=== PATIENT | male | born 1960 | race Two or more races ===

== ENCOUNTER → 2017-02-25 | Outpatient (REF) | payer OTHER ==
[~2017-02-25] MED LIST: ALEV220C2 PO; LISI20TA PO; OMEP20CA3 PO; SIMV40TA2 PO
== END ==
LOC: M SMT 16:53
PROVIDERS: ATTEND Nurse Practitioner Family
DX: R35.1 Nocturia (principal)

== ENCOUNTER 2018-07-03 07:50 | Day surgery (SDC) | payer OTHER ==
[~2018-07-03] VITALS: Ht 175.3 cm; Wt 94.3 kg
[~2018-07-03 07:50] MED LIST changes: +MONT10TA2 PO; +NS 1,000 ML IV ONE; +VENTAER INH; +VITA200038 PO; +allergy shots IM
[2018-07-03] MEDS ORDERED: PROPOFOL 500 MG/50 ML VIAL As Ordered ONE (08:08)
[2018-07-03] MEDS ORDERED: LIDOCAINE 2% INJ 100 MG/5 ML SDV (FOR ANES.) As Ordered ONE (08:32)
--- NOTE | 2018-07-03 10:23 | ROOR ---
Patient Name: Sen Luz Procedure Date: 07/03/2018 10:07 AM Date of : 1960 Age: 58 Room: [facility] Gender: Male Note Status: Finalized Procedure: Upper Endoscopy + Biopsies Indications: Heartburn, Exclusion of Landry's esophagus Providers: Jay Hoffman MD Referring MD: Sri Rodriguez MD Requesting Provider: Medicines: Monitored Anesthesia Care Complications: No immediate complications. Procedure: Pre-Anesthesia Assessment: - The heart rate, respiratory rate, oxygen saturations, blood pressure, adequacy of pulmonary ventilation, and response to care were monitored throughout the procedure. The Endoscope was introduced through the mouth, and advanced to the second part of duodenum. The upper GI endoscopy was accomplished without difficulty. The patient tolerated the procedure well. Findings: The Z-line was irregular and was found 40 cm from the incisors. Multiple biopsies were obtained with cold forceps for evaluation to rule out Landry's Esophagus randomly at the gastroesophageal junction. A small hiatal hernia was present. No other significant abnormalities were identified in a careful examination of the stomach. The exam of the duodenum was otherwise normal. Impression: - Z-line irregular, 40 cm from the incisors. - Small hiatal hernia. - Multiple biopsies were obtained at the gastroesophageal junction. - The examination was otherwise normal. Recommendation: - Patient has a contact number available for emergencies. The signs and symptoms of potential delayed complications were discussed with the patient. Return to normal activities tomorrow. Written discharge instructions were provided to the patient. - High fiber diet. - Discharge patient to home. - Follow an antireflux regimen. - Continue present medications. - Await pathology results. - Telephone GI clinic for pathology results in 1 week. - Return to referring physician. - The findings and recommendations were discussed with the patient's family. Jay Hoffman MD Jay Hoffman MD 07/03/2018 10:22:31 AM Electronically signed by Jay Hoffman MD Number of Addenda: 0 Note Initiated On: 07/03/2018 10:07 AM Estimated Blood Loss: Estimated blood loss: none.
--- NOTE | 2018-07-03 10:42 | ROOR ---
Patient Name: Sen Luz Procedure Date: 07/03/2018 10:07 AM Date of : 1960 Age: 58 Room: [facility] Gender: Male Note Status: Finalized Procedure: Total Colonoscopy to Cecum + Hot Snare Polypectomy + Hemoclip Indications: High risk colon cancer surveillance: Personal history of colonic polyps, Last colonoscopy: 2014 Providers: Jay Hoffman MD Referring MD: Sri Rodriguez MD Requesting Provider: Medicines: Monitored Anesthesia Care Complications: No immediate complications. Procedure: Pre-Anesthesia Assessment: - The heart rate, respiratory rate, oxygen saturations, blood pressure, adequacy of pulmonary ventilation, and response to care were monitored throughout the procedure. The Colonoscope was introduced through the anus and advanced to the cecum, identified by appendiceal orifice and ileocecal valve. The colonoscopy was performed without difficulty. The patient tolerated the procedure well. The quality of the bowel preparation was excellent. Findings: The perianal and digital rectal examinations were normal. Non-bleeding internal hemorrhoids were found during retroflexion. The hemorrhoids were small and Grade I (internal hemorrhoids that do not prolapse). Multiple small and large-mouthed diverticula were found in the recto-sigmoid colon, sigmoid colon and descending colon. A medium polyp was found at 10 cm proximal to the anus. The polyp was pedunculated. The polyp was removed with a hot snare. Resection and retrieval were complete. To prevent bleeding after the polypectomy, one hemostatic clip was successfully placed (MR conditional). There was no bleeding at the end of the procedure. A small polyp was found at 20 cm proximal to the anus. The polyp was sessile. The polyp was removed with a jumbo cold forceps. Resection and retrieval were complete. The exam was otherwise without abnormality on direct and retroflexion views. Impression: - Non-bleeding internal hemorrhoids. - Diverticulosis in the recto-sigmoid colon, in the sigmoid colon and in the descending colon. - One medium polyp at 10 cm proximal to the anus, removed with a hot snare. Resected and retrieved. Clip (MR conditional) was placed. - One small polyp at 20 cm proximal to the anus, removed with a jumbo cold forceps. Resected and retrieved. - The examination was otherwise normal on direct and retroflexion views. - The exam was otherwise normal to the cecum. Recommendation: - Patient has a contact number available for emergencies. The signs and symptoms of potential delayed complications were discussed with the patient. Return to normal activities tomorrow. Written discharge instructions were provided to the patient. - High fiber diet. - Discharge patient to home. - Continue present medications. - Await pathology results. - Repeat colonoscopy for surveillance based on pathology results. - Telephone GI clinic for pathology results in 1 week. - Return to referring physician. - The findings and recommendations were discussed with the patient's family. Jay Hoffman MD Jay Hoffman MD 07/03/2018 10:42:26 AM Electronically signed by Jay Hoffman MD Number of Addenda: 0 Note Initiated On: 07/03/2018 10:07 AM Estimated Blood Loss: Estimated blood loss: none.
[2018-07-03 10:50] VITALS: BP 117/78
== END 2018-07-03 11:08 | disposition home or self-care (01) ==
LOC: M OPP 07:50
PROVIDERS: ATTEND Internal Medicine Gastroenterology
DX: K64.0 First degree hemorrhoids (principal); K57.30 Diverticulosis of large intestine without perforation or abscess without bleeding; D12.6 Benign neoplasm of colon, unspecified; K22.8 Other specified diseases of esophagus; K44.9 Diaphragmatic hernia without obstruction or gangrene; R12 Heartburn; Z86.010 Personal history of colon polyps

== ENCOUNTER 2019-03-27 14:48 | Emergency (ER) | payer OTHER ==
[~2019-03-27] VITALS: Ht 175.3 cm; Wt 97.9 kg
[~2019-03-27 14:48] MED LIST changes: -LISI20TA PO; +LISI20TA19 PO; -NS 1,000 ML IV ONE; +OMEP1CAP73 PO; -OMEP20CA3 PO; -SIMV40TA2 PO; +SIMV40TA20 PO
[2019-03-27] MEDS ORDERED: ADACEL/BOOSTRIX VACCINE (DIPHTH/PERTUSS/ACELL/TETANUS)0.5ML SYR (90715) IM ONE (15:30)
[2019-03-27] MEDS ORDERED: LIDOCAINE 2% MDV 20 ML VIAL SC ONE (16:15)
[2019-03-27 17:20] VITALS: BP 126/76
--- NOTE | 2019-03-28 07:19 | REP ---
LEFT FIFTH FINGER SERIES: 03/27/2019. Clinical history: Laceration left fifth finger on a porcelain sink. Findings: Four views provided. No comparisons. There is soft tissue injury and flap of skin at the ulnar aspect of the DIP joint of the 5th digit. Some minor soft tissue swelling at the PIP joint. There is no fracture, avulsion or radiopaque foreign body. The pad of the finger also shows continuation of that same laceration. There are no other significant findings. Impression: 1. Laceration and soft tissue pad of the distal phalanx fifth digit without subjacent fracture, foreign body, avulsion or other acute bony finding. 2. Some soft tissue swelling about the PIP joint. Electronically Signed by Felipe Kumar MD 03/28/2019 08:07 P
== END 2019-03-27 17:20 | disposition home or self-care (01) ==
LOC: M ED 14:48
DX: S61.217A Laceration without foreign body of left little finger without damage to nail, initial encounter (principal); W26.8XXA Contact with other sharp object(s), not elsewhere classified, initial encounter; Y92.019 Unspecified place in single-family (private) house as the place of occurrence of the external cause; I10 Essential (primary) hypertension; J30.2 Other seasonal allergic rhinitis; Z79.84 Long term (current) use of oral hypoglycemic drugs; Z79.899 Other long term (current) drug therapy

== ENCOUNTER → 2019-04-06 | Outpatient (CLI) | payer OTHER ==
[2019-04-06 09:15] LABS: BASO % 1.2 % (0.0-1.0); HEMATOCRIT 42.8 % (42.0-52.0); HEMOGLOBIN 14.3 g/dl (13.5-17.5); LYMPH % 29.3 % (24.0-44.0); MEAN CORPUSCULAR HEMOGLOBIN 32.1 pg (27.0-33.0); MEAN CORPUSCULAR HGB CONC 33.4 g/dl (32.0-36.5); MEAN CORPUSCULAR VOLUME 96.2 fl (80.0-96.0); MONO # 0.4 10^3/uL (0.0-0.8); MONO % 11.3 % (0.0-5.0); NEUTROPHILS # 1.6 10^3/uL (1.5-8.5); NEUTROPHILS % 48.9 % (36.0-66.0); PLATELET COUNT, AUTOMATED 220 10^3/uL (150-450); RED BLOOD COUNT 4.45 10^6/uL (4.30-6.10); WHITE BLOOD COUNT 3.4 10^3/uL (4.0-10.0)
[2019-04-06 09:16] LABS: EOS # 0.3 10^3/uL (0.0-0.5)
[2019-04-06 09:46] LABS: ALBUMIN 4.3 GM/DL (3.2-5.2); ALT/SGPT 37 U/L (12-78); BILIRUBIN,TOTAL 0.5 MG/DL (0.2-1.0); BLOOD UREA NITROGEN 18 MG/DL (7-18); CALCIUM LEVEL 9.1 MG/DL (8.5-10.1); CARBON DIOXIDE LEVEL 27 MEQ/L (21-32); CHLORIDE LEVEL 105 MEQ/L (98-107); CHOLESTEROL LEVEL 209 MG/DL (<200); CHOLESTEROL RISK RATIO 3.215 (<5); CREATININE FOR GFR 1.01 MG/DL (0.70-1.30); GLOMERULAR FILTRATION RATE > 60.0 (>56); GLUCOSE, FASTING 82 MG/DL (70-100); HDL CHOLESTEROL 65 MG/DL (>40); LDL CHOLESTEROL 101 MG/DL (<100); NON-HDL-C 144 MG/DL; POTASSIUM SERUM 4.6 MEQ/L (3.5-5.1); SODIUM LEVEL 140 MEQ/L (136-145); TOTAL PROTEIN 7.8 GM/DL (6.4-8.2); TRIGLYCERIDES LEVEL 215 MG/DL (<150)
== END ==
LOC: M LAB 08:08
PROVIDERS: ATTEND Family Medicine
DX: I10 Essential (primary) hypertension (principal)
CPT/HCPCS: 36415; 80053; 80061; 85025; G0103

== ENCOUNTER 2020-02-05 08:45 | Emergency (ER) | payer OTHER ==
[~2020-02-05] VITALS: Ht 175.3 cm; Wt 98.6 kg
[~2020-02-05 08:45] MED LIST changes: -LISI20TA19 PO; +LISI20TA35 PO; -MONT10TA2 PO; +MONT5TAB2 PO
[2020-02-05 08:46] VITALS: BP 140/88
[2020-02-05] MEDS ORDERED: PROPARACAINE 0.5% OPHTH SOL 15ML OS ONE (09:00)
[2020-02-05] MEDS ORDERED: FLUORESCEIN OPHTH 1 MG STRIP OS ONE (09:00)
[2020-02-05] MEDS ORDERED: ERYT5OIN25 OS (09:30)
== END 2020-02-05 09:44 | disposition home or self-care (01) ==
LOC: M ED 08:45
DX: S05.02XA Injury of conjunctiva and corneal abrasion without foreign body, left eye, initial encounter (principal); W60.XXXA Contact with nonvenomous plant thorns and spines and sharp leaves, initial encounter; Y92.9 Unspecified place or not applicable; Y93.9 Activity, unspecified; Y99.9 Unspecified external cause status; Z79.899 Other long term (current) drug therapy

== ENCOUNTER → 2020-04-09 | Outpatient (CLI) | payer SELFPAY ==
[~2020-04-09] MED LIST changes: +ERYT5OIN25 OS; +MONT10TA10 PO; -MONT5TAB2 PO
== END ==
LOC: M LABSMTC 10:22
PROVIDERS: ATTEND Pediatrics
DX: Z20.822 Contact with and (suspected) exposure to COVID-19 (principal)

== ENCOUNTER → 2021-03-27 | Outpatient (CLI) | payer OTHER ==
[~2021-03-27] MED LIST changes: -MONT10TA10 PO; +MONT10TA97 PO
== END ==
LOC: M LAB 11:29
PROVIDERS: ATTEND Urology
DX: N40.1 Benign prostatic hyperplasia with lower urinary tract symptoms (principal)

== ENCOUNTER → 2021-05-11 | Outpatient (CLI) | payer OTHER | LOC: M RAD 10:06 | PROVIDERS: ATTEND Family Medicine | DX: R10.11 Right upper quadrant pain (principal); R94.5 Abnormal results of liver function studies ==

== ENCOUNTER → 2021-11-13 | Outpatient (CLI) | payer OTHER | LOC: M LAB 08:50 | PROVIDERS: ATTEND Family Medicine | DX: J30.1 Allergic rhinitis due to pollen (principal); J32.0 Chronic maxillary sinusitis; R05.3 Chronic cough ==

== ENCOUNTER → 2022-03-14 | Outpatient (CLI) | payer OTHER ==
[2022-03-14 07:00] LABS: BASO % 1.2 % (0.0-1.0); EOS # 0.2 10^3/uL (0.0-0.5); EOS % 6.3 % (0.0-3.0); HEMOGLOBIN 13.6 g/dl (13.5-17.5); LYMPH % 28.5 % (24.0-44.0); MEAN CORPUSCULAR HEMOGLOBIN 32.4 pg (27.0-33.0); MEAN CORPUSCULAR VOLUME 95.2 fl (80.0-96.0); MONO # 0.4 10^3/uL (0.0-0.8); MONO % 12.6 % (2.0-8.0); NEUTROPHILS # 1.7 10^3/uL (1.5-8.5); NEUTROPHILS % 50.5 % (36.0-66.0); PLATELET COUNT, AUTOMATED 217 10^3/uL (150-450); WHITE BLOOD COUNT 3.3 10^3/uL (4.0-10.0)
[2022-03-14 07:30] LABS: ALKALINE PHOSPHATASE 67 U/L (46-116); ALT/SGPT 43 U/L (7.0-40); AST/SGOT 50 U/L (<34); BILIRUBIN,TOTAL 0.4 MG/DL (0.3-1.2); BLOOD UREA NITROGEN 19 MG/DL (9-23); CALCIUM LEVEL 9.5 MG/DL (8.3-10.6); CARBON DIOXIDE LEVEL 24 MMOL/L (20-31); CHLORIDE LEVEL 102 MMOL/L (98-107); CHOLESTEROL LEVEL 185 MG/DL (<200); CHOLESTEROL RISK RATIO 3.09 (<5); CREATININE FOR GFR 1.12 MG/DL (0.70-1.30); GLOMERULAR FILTRATION RATE > 60.0 (>49); GLUCOSE, FASTING 90 MG/DL (74-106); HDL CHOLESTEROL 59.8 MG/DL (>40); LDL CHOLESTEROL 90.6 MG/DL (<100); NON-HDL-C 125 MG/DL; POTASSIUM SERUM 4.4 MMOL/L (3.5-5.1); SODIUM LEVEL 137 MMOL/L (136-145); TOTAL PROTEIN 7.5 G/DL (5.7-8.2); TRIGLYCERIDES LEVEL 173 MG/DL (<150)
[2022-03-14 14:42] LABS: TOTAL 25(OH) VITAMIN D 37.8 NG/ML (20.0-100.0)
== END ==
LOC: M LAB 06:19
PROVIDERS: ATTEND Family Medicine
DX: I10 Essential (primary) hypertension (principal); N40.1 Benign prostatic hyperplasia with lower urinary tract symptoms; E55.9 Vitamin D deficiency, unspecified
CPT/HCPCS: 36415; 80053; 80061; 82306; 85025; G0103

== ENCOUNTER → 2022-10-18 | Outpatient (CLI) | payer OTHER ==
[2022-10-18 09:15] LABS: ALBUMIN 4.2 G/DL (3.2-5.2); ALKALINE PHOSPHATASE 69 U/L (46-116); ALT/SGPT 45 U/L (7.0-40); AST/SGOT 71 U/L (<34); BILIRUBIN,TOTAL 0.5 MG/DL (0.3-1.2); BLOOD UREA NITROGEN 12 MG/DL (9-23); CALCIUM LEVEL 9.9 MG/DL (8.3-10.6); CARBON DIOXIDE LEVEL 28 MMOL/L (20-31); CHLORIDE LEVEL 100 MMOL/L (98-107); CHOLESTEROL LEVEL 207 MG/DL (<200); CHOLESTEROL RISK RATIO 2.36 (<5); GLOMERULAR FILTRATION RATE > 60.0 (>49); GLUCOSE, FASTING 91 MG/DL (74-106); HDL CHOLESTEROL 87.5 MG/DL (>40); LDL CHOLESTEROL 99.3 MG/DL (<100); NON-HDL-C 119.5 MG/DL; POTASSIUM SERUM 4.7 MMOL/L (3.5-5.1); SODIUM LEVEL 136 MMOL/L (136-145); TOTAL PROTEIN 7.6 G/DL (5.7-8.2); TRIGLYCERIDES LEVEL 101 MG/DL (<150)
== END ==
LOC: M LAB 07:50
PROVIDERS: ATTEND Nurse Practitioner Family
DX: I10 Essential (primary) hypertension (principal)

== ENCOUNTER → 2023-03-20 | Outpatient (CLI) | payer OTHER ==
[2023-03-20 08:02] LABS: ALBUMIN 4.1 G/DL (3.2-5.2); ALKALINE PHOSPHATASE 64 U/L (46-116); ALT/SGPT 48 U/L (7.0-40); AST/SGOT 68 U/L (<34); BILIRUBIN,TOTAL 0.7 MG/DL (0.3-1.2); BLOOD UREA NITROGEN 22 MG/DL (9-23); CALCIUM LEVEL 9.5 MG/DL (8.3-10.6); CARBON DIOXIDE LEVEL 25 MMOL/L (20-31); CHLORIDE LEVEL 100 MMOL/L (98-107); CHOLESTEROL LEVEL 256 MG/DL (<200); CHOLESTEROL RISK RATIO 3.89 (<5); CREATININE FOR GFR 1.26 MG/DL (0.70-1.30); GLOMERULAR FILTRATION RATE > 60.0 (>49); GLUCOSE, FASTING 97 MG/DL (74-106); HDL CHOLESTEROL 65.8 MG/DL (>40); LDL CHOLESTEROL 167.8 MG/DL (<100); NON-HDL-C 190.2 MG/DL; POTASSIUM SERUM 4.4 MMOL/L (3.5-5.1); SODIUM LEVEL 133 MMOL/L (136-145); TOTAL PROTEIN 7.4 G/DL (5.7-8.2); TRIGLYCERIDES LEVEL 112 MG/DL (<150)
== END ==
LOC: M LAB 06:47
PROVIDERS: ATTEND Nurse Practitioner Family
DX: E78.2 Mixed hyperlipidemia (principal); K75.81 Nonalcoholic steatohepatitis (NASH)

== ENCOUNTER → 2023-03-20 | Outpatient (CLI) | payer OTHER ==
[2023-03-20 08:04] LABS: COMPLEMENT C3 134.6 MG/DL (90.0-170.0); COMPLEMENT C4 33.7 MG/DL (12-36); IMMUNOGLOBULIN A 384.6 MG/DL (40-350); IMMUNOGLOBULIN G 1080 MG/DL (650-1600)
[2023-03-20 08:07] LABS: IMMUNOGLOBULIN E 2023.3 IU/ML (0-378)
[2023-03-24 11:07] LABS: ALPHA 1 ANTITRYPSIN 136 mg/dL (101-187); D001-IgE D pteronyssinus 6.44 kU/L (Class IV); E003-IGE HORSE EPITHELIA/DAND 4.96 kU/L (Class IV); E004-IGE COW DANDER 0.19 kU/L (Class 0/I); E005-IgE Dog Dander 4.51 kU/L (Class IV); F002-IgE Milk < 0.10 kU/L (Class 0); F004-IgE Wheat 0.37 kU/L (Class I); F013-IgE Peanut 0.28 kU/L (Class 0/I); F014-IgE Soybean 0.14 kU/L (Class 0/I); F026-IgE Pork < 0.10 kU/L (Class 0); F027-IgE Beef < 0.10 kU/L (Class 0); F245-IgE Egg, Whole < 0.10 kU/L (Class 0); G002-IgE Bermuda Grass 0.21 kU/L (Class 0/I); M001-IgE Penicillium chrysogen < 0.10 kU/L (Class 0); M002 IgE Cladosporium herbaru < 0.10 kU/L (Class 0); M006-IgE Alternaria alternata < 0.10 kU/L (Class 0); T006-IgE Cedar, Mountain 0.47 kU/L (Class I); T007-IgE Oak, White 5.56 kU/L (Class IV); T008-IgE Elm, American 0.66 kU/L (Class II); T015-IgE Ash, White 0.82 kU/L (Class II); T070-IgE White Mulberry 0.15 kU/L (Class 0/I); W001-IgE Ragweed, Short 2.08 kU/L (Class III); W018-IgE Sheep Sorrel 0.25 kU/L (Class 0/I)
== END ==
LOC: M LAB 06:49
PROVIDERS: ATTEND Allergy & Immunology
DX: J30.1 Allergic rhinitis due to pollen (principal); J32.0 Chronic maxillary sinusitis; R05.3 Chronic cough

== ENCOUNTER → 2023-03-27 | Outpatient (CLI) | payer OTHER | LOC: M LAB 09:42 | PROVIDERS: ATTEND Physician Assistant | DX: Z12.5 Encounter for screening for malignant neoplasm of prostate (principal) ==

== ENCOUNTER → 2023-10-07 | Outpatient (CLI) | payer OTHER ==
[2023-10-07 09:14] LABS: ALBUMIN 4.3 G/DL (3.2-5.2); ALKALINE PHOSPHATASE 75 U/L (46-116); ALT/SGPT 49 U/L (7.0-40); AST/SGOT 115 U/L (<34); BILIRUBIN,DIRECT 0.3 MG/DL (<0.4); BILIRUBIN,TOTAL 0.9 MG/DL (0.3-1.2); IRON (FE) 154 UG/DL (65-175); PERCENT SATURATION 50.7 % (19.7-50.0); THYROID STIMULATING HORMONE 1.968 uIU/ML (0.55-4.78); TOTAL IRON BINDING CAPACITY 304 UG/DL (250-425); TOTAL PROTEIN 7.7 G/DL (5.7-8.2)
[2023-10-07 09:15] LABS: FERRITIN 1213.4 NG/ML (10.5-307.3); HEPATITIS B SURFACE ANTIBODY NEGATIVE (POSITIVE)
[2023-10-07 09:28] LABS: HEPATITIS B SURFACE ANTIGEN NEGATIVE (NEGATIVE)
[2023-10-07 09:47] LABS: HEPATITIS C VIRUS ABY INDEX < 0.02 INDEX (<0.8)
[2023-10-09 00:27] LABS: T P ELECTROPHORESIS SO 7.8 g/dL (6.1-8.1)
[2023-10-09 10:23] LABS: ALPHA 1 ANTITRYPSIN 157 mg/dL (83-199)
[2023-10-09 12:32] LABS: ANA SCREEN, IFA NEGATIVE (NEGATIVE)
[2023-10-09 14:52] LABS: ANTI-MITOCHONDRIAL ANTIBODY NEGATIVE (NEGATIVE); HEPATITIS A IgG TOTAL NON-REACTIVE (NON-REACTIVE)
[2023-10-10 03:22] LABS: TISSUE TRANSGLUTAMINASE IgA < 1.0 U/mL (<15.0)
== END ==
LOC: M LAB 07:41
PROVIDERS: ATTEND Nurse Practitioner Family
DX: K21.9 Gastro-esophageal reflux disease without esophagitis (principal); R94.5 Abnormal results of liver function studies

== ENCOUNTER → 2023-10-21 | Outpatient (CLI) | payer OTHER | LOC: M RAD 10:15 | PROVIDERS: ATTEND Nurse Practitioner Family | DX: R94.5 Abnormal results of liver function studies (principal) ==

== ENCOUNTER → 2024-01-01 | Outpatient (CLI) | payer OTHER ==
[2024-01-01 09:34] LABS: BASO % 1.1 % (0.0-1.0); EOS # 0.1 10^3/uL (0.0-0.5); EOS % 3.9 % (0.0-3.0); HEMATOCRIT 37.2 % (42.0-52.0); HEMOGLOBIN 13.3 g/dl (13.5-17.5); LYMPH # 0.6 10^3/uL (1.5-5.0); MEAN CORPUSCULAR HEMOGLOBIN 34.5 pg (27.0-33.0); MEAN CORPUSCULAR HGB CONC 35.8 g/dl (32.0-36.5); MEAN CORPUSCULAR VOLUME 96.6 fl (80.0-96.0); MONO # 0.6 10^3/uL (0.0-0.8); MONO % 16.3 % (2.0-8.0); NEUTROPHILS # 2.3 10^3/uL (1.5-8.5); NEUTROPHILS % 62.1 % (36.0-66.0); PLATELET COUNT, AUTOMATED 209 10^3/uL (150-450); RED BLOOD COUNT 3.85 10^6/uL (4.30-6.10); WHITE BLOOD COUNT 3.6 10^3/uL (4.0-10.0)
[2024-01-01 10:01] LABS: ALKALINE PHOSPHATASE 69 U/L (40-129); ALT/SGPT 43 U/L (7.0-40); AST/SGOT 85 U/L (<34); BLOOD UREA NITROGEN 15 MG/DL (9-23); CALCIUM LEVEL 10.1 MG/DL (8.3-10.6); CARBON DIOXIDE LEVEL 28 MMOL/L (20-31); CHLORIDE LEVEL 100 MMOL/L (98-107); CHOLESTEROL LEVEL 191 MG/DL (<200); CHOLESTEROL RISK RATIO 3.31 (<5); CREATININE FOR GFR 1.14 MG/DL (0.70-1.30); GLOMERULAR FILTRATION RATE > 60.0 (>49); GLUCOSE, FASTING 101 MG/DL (74-106); HDL CHOLESTEROL 57.7 MG/DL (>40); LDL CHOLESTEROL 114.1 MG/DL (<100); NON-HDL-C 133.3 MG/DL; POTASSIUM SERUM 4.5 MMOL/L (3.5-5.1); PSA SCREENING 0.47 NG/ML (< 4.00); SODIUM LEVEL 134 MMOL/L (136-145); TOTAL PROTEIN 7.5 G/DL (5.7-8.2); TRIGLYCERIDES LEVEL 96 MG/DL (<150)
== END ==
LOC: M LAB 08:30
PROVIDERS: ATTEND Nurse Practitioner Family
DX: I10 Essential (primary) hypertension (principal); E78.2 Mixed hyperlipidemia; K75.81 Nonalcoholic steatohepatitis (NASH); N40.1 Benign prostatic hyperplasia with lower urinary tract symptoms
CPT/HCPCS: 36415; 80053; 80061; 85025; G0103

== ENCOUNTER → 2024-05-08 | Outpatient (CLI) | payer OTHER ==
[2024-05-08 10:04] LABS: COMPLEMENT C3 149.2 MG/DL (90.0-170.0); COMPLEMENT C4 36.7 MG/DL (12-36); IMMUNOGLOBULIN A 328.4 MG/DL (40-350); IMMUNOGLOBULIN M 187.6 MG/DL (50-300)
[2024-05-08 10:07] LABS: IMMUNOGLOBULIN E 2981.7 IU/ML (0-378)
[2024-05-11 12:32] LABS: ALPHA 1 ANTITRYPSIN 144 mg/dL (83-199)
[2024-05-11 14:27] LABS: ALMOND IGE FOOD 0.21 kU/L (<0.10); BERMUDA GRASS IGE 0.27 kU/L (<0.10); BIRCH IGE 8.85 kU/L (<0.10); BRAZIL NUT CLASS IGE <0.10 ABSENT (<0.10); BRAZIL NUT IGE < 0.10 kU/L (<0.10); CASHEW NUT IGE FOOD 0.14 kU/L (<0.10); CODFISH IGE FOOD 0.15 kU/L (<0.10); COMMON RAGWEED SHORT IGE 2.14 kU/L (<0.10); COWS MILK FOOD < 0.10 kU/L (<0.10); D001 IGE D PTERONYSSINUS 7.21 kU/L (<0.10); E003-IGE HORSE EPITHELIA/DAND 2.96 kU/L (<0.10); E004-IGE COW DANDER 0.19 kU/L (<0.10); E005-IGE DOG DANDER 3.66 kU/L (<0.10); EGG WHITE FOOD < 0.1 kU/L (<0.10); ELM IGE 0.67 kU/L (<0.10); HAZELNUT IGE FOOD 6.64 kU/L (<0.10); I006 IGE COCKROACH 6.64 kU/L (<0.10); IMMUNOGLOBULIN E FOR ALLERGENS 2172 kU/L (<OR=114); M002 IGE CLADOSPORIUM HERBARU < 0.10 kU/L (<0.10); M003 IGE ASPERGILLUS FUMIGATU 0.25 kU/L (<0.10); M006 IGE ALTERNIA ALTERNATA < 0.10 kU/L (<0.10); M1-PENICILLIUM NOTATUM 0.31 kU/L (<0.10); MACADAMIA NUT 0.36 kU/L (<0.10); MACADAMIA NUT CLASS IGE 0.35-0.69 LOW (<0.10); OAK IGE 4.93 kU/L (<0.10); PEANUT IGE FOOD 0.28 kU/L (<0.10); ROUGH PIGWEED IGE 0.24 kU/L (<0.10); SALMON IGE FOOD < 0.10 kU/L (<0.10); SCALLOP IGE FOOD 0.37 kU/L (<0.10); SESAME SEED IGE FOOD 0.56 kU/L (<0.10); SHRIMP IGE FOOD 1.26 kU/L (<0.10); SOYBEAN IGE FOOD 0.13 kU/L (<0.10); SYCAMORE IGE 0.19 kU/L (<0.10); T001-IGE MAPLE BOX ELDER 4.33 kU/L (<0.10); T006-IGE MOUNTAIN CEDAR 0.23 kU/L (<0.10); T014 COTTONWOOD IGE 0.45 kU/L (<0.10); TIMOTHY GRASS IGE 4.57 kU/L (<0.10); TUNA IGE FOOD 0.13 kU/L (<0.10); WALNUT IGE FOOD 0.16 kU/L (<0.10); WALNUT TREE IGE 0.63 kU/L (<0.10); WHEAT IGE FOOD 0.63 kU/L (<0.10); WHITE ASH IGE 0.49 kU/L (<0.10); WHITE MULBERRY IGE 0.13 kU/L (<0.10)
[2024-05-12 13:31] LABS: E094-IgE Fel d 1 14.8 kU/L (<0.10); E101-IgE Can f 1 2.89 kU/L (<0.10); E102-IgE Can f 2 < 0.10 kU/L (<0.10); E226 IgE Can f 5 < 0.10 kU/L (<0.10); E228-IgE Fel d 4 0.64 kU/L (<0.10); E229 IGE CAN F 4 0.16 kU/L (<0.10); E230 IGE CAN F 6 < 0.10 kU/L (<0.10); E231 IGE FEL D 7 4.47 kU/L (<0.10)
[2024-05-12 17:07] LABS: F024-IgE Shrimp 1.31 kU/L (Class II); F049-IGE APPLE 0.53 kU/L (Class I); F338-IgE Oyster 0.21 kU/L (Class 0/I); F338-IgE Scallop 0.37 kU/L (Class I)
== END ==
LOC: M LAB 08:51
PROVIDERS: ATTEND Allergy & Immunology
DX: J30.81 Allergic rhinitis due to animal (cat) (dog) hair and dander (principal); J30.89 Other allergic rhinitis; R05.9 Cough, unspecified

== ENCOUNTER → 2024-09-22 | Outpatient (CLI) | payer OTHER ==
[2024-09-22 09:16] LABS: ALT/SGPT 55.0 U/L (7.0-40); AST/SGOT 83.0 U/L (<34)
== END ==
LOC: M LAB 08:06
PROVIDERS: ATTEND Internal Medicine Gastroenterology
DX: K21.9 Gastro-esophageal reflux disease without esophagitis (principal); R94.5 Abnormal results of liver function studies; F10.10 Alcohol abuse, uncomplicated; R79.89 Other specified abnormal findings of blood chemistry; K76.0 Fatty (change of) liver, not elsewhere classified

== ENCOUNTER → 2024-10-21 | Outpatient (CLI) | payer OTHER ==
[2024-10-21 07:27] LABS: BASO # 0.0 10^3/uL (0.0-0.2); BASO % 0.9 % (0.0-1.0); EOS # 0.2 10^3/uL (0.0-0.5); EOS % 6.2 % (0.0-3.0); LYMPH # 0.6 10^3/uL (1.5-5.0); LYMPH % 18.4 % (24.0-44.0); MONO # 0.5 10^3/uL (0.0-0.8); MONO % 14.8 % (2.0-8.0); NEUTROPHILS # 2.0 10^3/uL (1.5-8.5); NEUTROPHILS % 59.1 % (36.0-66.0); PLATELET COUNT, AUTOMATED 215 10^3/uL (150-450)
[2024-10-21 08:01] LABS: ALT/SGPT 69.0 U/L (7.0-40); AST/SGOT 93.0 U/L (<34); CALCIUM LEVEL 9.6 MG/DL (8.3-10.6); CARBON DIOXIDE LEVEL 31.0 MMOL/L (20-31); CHLORIDE LEVEL 99.0 MMOL/L (98-107); CHOLESTEROL LEVEL 179.0 MG/DL (<200); CHOLESTEROL RISK RATIO 2.72 (<5); CREATININE FOR GFR 1.04 MG/DL (0.70-1.30); GLOMERULAR FILTRATION RATE 80.2 (>49); LDL CHOLESTEROL 95.0 MG/DL (<100); NON-HDL-C 113.2 MG/DL; POTASSIUM SERUM 4.2 MMOL/L (3.5-5.1); PSA SCREENING 0.83 NG/ML (< 4.00); SODIUM LEVEL 140.0 MMOL/L (136-145); TRIGLYCERIDES LEVEL 91.0 MG/DL (<150)
== END ==
LOC: M LAB 06:53
PROVIDERS: ATTEND Nurse Practitioner Family
DX: I10 Essential (primary) hypertension (principal); E78.2 Mixed hyperlipidemia; N40.1 Benign prostatic hyperplasia with lower urinary tract symptoms
CPT/HCPCS: 36415; 80053; 80061; 85025; G0103

== ENCOUNTER → 2024-12-10 | Outpatient (CLI) | payer OTHER ==
[2024-12-10 09:13] LABS: CALCIUM LEVEL 9.4 MG/DL (8.3-10.6); CARBON DIOXIDE LEVEL 29.0 MMOL/L (20-31); CHLORIDE LEVEL 98.0 MMOL/L (98-107); CREATININE FOR GFR 1.05 MG/DL (0.70-1.30); GLOMERULAR FILTRATION RATE 79.3 (>49); POTASSIUM SERUM 4.3 MMOL/L (3.5-5.1); SODIUM LEVEL 137.0 MMOL/L (136-145)
== END ==
LOC: M LAB 08:22
PROVIDERS: ATTEND Nurse Practitioner Family
DX: Z01.818 Encounter for other preprocedural examination (principal)